=== PATIENT | male | born 1955 | race Caucasian/White ===

== ENCOUNTER 2017-11-01 08:43 | Outpatient (CLI) | payer OTHER ==
--- NOTE | 2017-11-01 11:30 | CT ---
CHEST CT WITHOUT CONTRAST: History: Follow up pulmonary nodule. Comparison: CT angiogram of the chest 04-17-17 at [facility] Technique: Noncontrast chest CT is performed in the axial plane. Coronal reformatted images are submi tted for interpretation. FINDINGS: Limited evaluation of the mediastinum due to lack of IV contrast. No mass, lymphadenopathy or hematom a. Heart size is within normal limits. No pericardial effusion. Visualized aorta has a normal caliber . No periaortic fat stranding. Upper solid organs are grossly unremarkable. Evidence of cholelithiasis. Previously noted 1.1 cm nodule in the left upper lobe is significantly decreased in size. Currently, this nodule measures 0.5 cm. In the area of consolidation, along the posterior aspect of the left upp er lobe (lingual), there is improved aeration. Residual linear and ground glass opacities do remain s uggesting scar/atelectasis. There are areas of scarring and atelectasis in both lower lobes. Pleural based opacity in the lateral right hemithorax is noted, unchanged, measuring 1.4 cm. There is remote deformity of the right ribs. IMPRESSION: Improved aeration of the left lung. Previously noted left upper lobe pulmonary nodule is decreased in size. Opacification in the posterior left upper lobe (lingula) has also decreased in size. Residual opacity may represent atelectasis or scar. POS: [facility]
== END 2017-11-01 08:44 | disposition home or self-care (01) ==
LOC: CT 08:43
PROVIDERS: ATTEND Internal Medicine
DX: I26.99 Other pulmonary embolism without acute cor pulmonale (principal); R91.1 Solitary pulmonary nodule; G47.33 Obstructive sleep apnea (adult) (pediatric); R91.8 Other nonspecific abnormal finding of lung field
CPT/HCPCS: 71250

== ENCOUNTER 2018-12-11 09:02 | Outpatient (CLI) | payer BC ==
--- NOTE | 2018-12-11 10:12 | CT ---
CT Chest WO Con History: [Pulmonary nodule.] Comparison: CT chest 2018 Findings: There is been no interval size increase of the left upper lobe pulmonary nodule from the 20 examination. This has decreased in size from the 2017 examination. Lingular scarring is similar. No new suspicious pulmonary mass. No pneumothorax. No effusion. Mild scarring both lung bases with round atelectasis in the right lower lobe, similar. Thyroid is unr emarkable. Size unchanged mediastinal lymph nodes. No pericardial effusion. Mild tortuosity of the aorta. Subtle calcification of the uncinate process of the pancreas. Cholelithiasis is present. Ankle evaluation of a hyperdense mass of the posterior cortex left kidney. Thoracic spine is unremarkable. No compression fracture. Old right-sided rib fractures. No acute disp laced rib fractures. Impression: 1. Unchanged left lower lobe pulmonary nodule. 2. No new suspicious pulmonary nodules. 3. Hyperdense mass left kidney. Nonemergent renal protocol CT or MRI is recommended.
== END 2018-12-11 09:03 | disposition home or self-care (01) ==
LOC: BICCT 09:02
PROVIDERS: ATTEND Internal Medicine
DX: R91.1 Solitary pulmonary nodule (principal); N28.89 Other specified disorders of kidney and ureter
CPT/HCPCS: 71250